=== PATIENT | female | born 1990 | race Caucasian/White ===

== ENCOUNTER 2021-10-13 11:04 | Emergency (ER) | payer OTHER, SELFPAY ==
--- NOTE | ~2021-10-13 | XR_ITS ---
XR abdomen/kub 1V DATE: 10/13/2021 13:45 INDICATION: Constipation. Last bowel movement one week ago. TECHNIQUE: AP projection, 2 views COMPARISON: None FINDINGS: There is a prominent amount of fecal material throughout the colon consistent with clinical complaint of constipation. No bowel obstruction is noted. No visceromegaly or abnormal calcification is noted. Transitional lumbosacral vertebra with sacralization pseudoarthrosis on the right. The lung bases are clear. Heart size appears normal. IMPRESSION: Prominent amount of fecal material in the colon, consistent with clinical complaint of co nstipation; no bowel obstruction Reviewed, dictated and finalized at [facility]. Reviewed, dictated and finalized at [facility]. IMPRESSION: Prominent amount of fecal material in the colon, consistent with cl inical complaint of constipation; no bowel obstruction
[2021-10-13 11:18] VITALS: BP 123/71; PULSE 100; RESP 17; TEMP 36.6; O2SAT 100
[2021-10-13 12:22] LABS: Basophils Absolute Auto 0.1 K/mm3 (0.0-0.1); Eosinophils Absolute Auto 0.3 K/mm3 (0-0.3); Hematocrit 42.4 % (37.0-47.0); Hemoglobin 13.4 g/dL (12.0-15.0); Immature Granulocyte Absolute 0.01 K/mm3 (0.00-0.031); Immature Granulocyte Percent A 0.2 % (0-0.5); Lymphocytes Absolute Auto 1.53 K/mm3 (0.9-3.2); Lymphocytes Percent Auto 25.7 % (18.3-44.2); Mean Corpuscular HGB Conc 31.6 g/dl (32-36); Mean Corpuscular Hemoglobin 29.5 pg (26-34); Mean Corpuscular Volume 93.2 fl (80-100); Mean Platelet Volume 9.2 fl (7.4-10.4); Monocytes Absolute Auto 0.6 K/mm3 (0.1-0.6); Monocytes Percent Auto 9.9 % (2.6-8.5); Neutrophils Absolute Auto 3.5 K/mm3 (1.3-6.7); Neutrophils Percent Auto 58.2 % (45.5-73.1); Platelet Count Result 332 k/mm3 (150-375); Red Blood Count 4.55 M/mm3 (4.2-5.4); Red Cell Distribution Width 12.7 % (11.5-14.5)
[2021-10-13 12:42] LABS: Add Urine Microscopic? YES; Appearance Urine Cloudy (Clear); Bilirubin Urine Negative (Negative); Blood Urine Negative (Negative); Color Urine Yellow (Yellow); Glucose Urine UA Negative (Negative); Ketones Urine Negative (Negative); Leukocyte Esterase Ur Negative LEU/UL (Negative); Nitrate Urine Negative (Negative); Protein Urine Negative (Negative); Specific Grav Ur >= 1.030 (1.001-1.035); Urobilinogen Urine 0.2 mg/dL (<2.0)
[2021-10-13 12:46] LABS: Mucus Urine Rare /lpf; RBC Urine 0-2 /hpf (0-2); Squamous Epithelial Cell Urine Many /hpf (Few); WBC Urine 0-3 /hpf
--- NOTE | 2021-10-13 12:52 | PC.NURSE ---
Phlebotomy called due to green top rejection in lab and patient being IV ultra sound difficulty.
[2021-10-13 13:24] LABS: Alanine Aminotransferase 17 U/L (6-35); Albumin Level 4.2 g/dL (3.5-5.1); Alkaline Phosphatase 41 U/L (38-126); Anion Gap 5 mmol/L (8-16); Aspartate Amino Transferase 27 U/L (14-36); Bilirubin,Total 0.6 mg/dL (0.2-1.3); Blood Urea Nitrogen 16 mg/dL (7-17); Calcium 8.9 mg/dL (8.4-10.2); Carbon Dioxide 24 mmol/L (22-30); Chloride 107 mmol/L (98-107); Estimated CRCL calculation 92 ml/min; Estimated Glomerular Filt Rate > 60; Glucose 92 mg/dL (65-110); Lipase 85 U/L (23-300); Potassium 4.7 mmol/L (3.4-5.0); Sodium 136 mmol/L (137-145)
--- NOTE | 2021-10-13 14:06 | ED.ABDPAIN ---
HPI - Abdominal Pain General Chief Complaint: Abdominal Pain Stated Complaint: abd pain Time Seen by Provider: 10/13/21 11:58 History of Present Illness HPI narrative: Patient is a 31-year-old female who presents ER with periumbilical pain. Ongoing for 1 week. Associate with constipation and bloating. Feels better when she passes gas. No vomiting. No history of abdominal surgery or bowel obstruction. Denies fevers or chills or sweats. Has taken Ex-Lax without improvement. Related Data Home Medications Medication Instructions Recorded Confirmed alprazolam 04/05/19 dextroamphetamine-amphetamine 04/05/19 Allergies Allergy/AdvReac Type Severity Reaction Status Date / Time No Known Allergies Allergy Verified 10/13/21 12:19 Review of Systems Review of Systems: All systems reviewed & are unremarkable except as noted in HPI and below Constitutional: Constitutional: Denies chills, Denies fever(s) and Denies weakness ENT: Denies nasal congestion and Denies sore throat Cardiovascular: Cardiovascular: Denies chest pain, Denies rapid heart rate and Denies radiating jaw, neck or arm pain Respiratory: Respiratory: Denies cough and Denies dyspnea Gastrointestinal: Gastrointestinal: Reports abdominal pain, Reports bloating, Reports constipation, Denies diarrhea, Denies nausea and Denies vomiting PMFSH Past Medical History Medical History (Updated 10/13/21 @ 14:15 by Graham Marshall MD) ADHD Anxiety HTN (hypertension) Surgical History Surgical History (Updated 10/13/21 @ 14:08 by Graham Marshall MD) No pertinent past surgical history Social History Social History (Updated 04/05/19 @ 17:08 by Carla Carr, NIGHT SHIFT MANAGER) Smoking packs per day: 1 Smoking cigarettes per day: 20.0 Years smoked: 20 Smoking pack-years: 20.00 Smoking status: Current every day smoker Tobacco type: cigarettes Alcohol intake: never Substance use: former Substance use type: opiates Gender identity (if verbalized by the patient): Female Exam Narrative: GENERAL: Well-appearing, well-nourished, and in no acute distress. HEAD: Normocephalic, atraumatic. CHEST: Clear to auscultation. No respiratory distress. HEART: Regular rate and rhythm. Normal peripheral pulses. ABDOMEN: Soft, nontender, nondistended. EXTREMITIES: Normal range of motion. No edema. SKIN: Warm, dry, no rash. NEURO: Alert and oriented x3. PSYCH: Normal mood and affect. Course Course Emergency Course: Patient educated on constipation and need for good hydration. Discharge home with magnesium citrate and as needed MiraLAX. Vital Signs Vital signs: Vital Signs Temperature 97.8 F 10/13/21 11:18 Pulse Rate 100 10/13/21 11:18 Respiratory Rate 17 10/13/21 11:18 Blood Pressure 123/71 10/13/21 11:18 Pulse Oximetry 100 10/13/21 11:18 Temperature 97.8 F 10/13/21 11:18 Pulse Rate 100 10/13/21 11:18 Respiratory Rate 17 10/13/21 11:18 Blood Pressure 123/71 10/13/21 11:18 Pulse Oximetry 100 10/13/21 11:18 MDM - Abdominal Pain Lab Data Result diagrams: 10/13/21 12:13 10/13/21 13:03 Labs: Lab Results 10/13/21 10/13/21 10/13/21 Range/Units 12:13 12:13 13:03 WBC 6.0 (4.5-10.0) K/mm3 RBC 4.55 (4.2-5.4) M/mm3 Hgb 13.4 (12.0-15.0) g/dL Hct 42.4 (37.0-47.0) % MCV 93.2 (80-100) fl MCH 29.5 (26-34) pg MCHC 31.6 L (32-36) g/dl RDW 12.7 (11.5-14.5) % Plt Count 332 (150-375) k/mm3 MPV 9.2 (7.4-10.4) fl Immature Gran % (Auto) 0.2 (0-0.5) % Neut % (Auto) 58.2 (45.5-73.1) % Lymph % (Auto) 25.7 (18.3-44.2) % [place] % (Auto) 9.9 H (2.6-8.5) % Eos % (Auto) 5.0 H (0-4.4) % Baso % (Auto) 1.0 (0.2-1.2) % Lymph # (Auto) 1.53 (0.9-3.2) K/mm3 [place] # (Auto) 0.6 (0.1-0.6) K/mm3 Eos # (Auto) 0.3 (0-0.3) K/mm3 Baso # (Auto) 0.1 (0.0-0.1) K/mm3 Abs Immat Gran (auto) 0.01 (0.00-0.031) K
[2021-10-13] MEDS: MAGNESIUM CITRATE 300 ML BTL PO (14:29)
== END 2021-10-13 14:30 | disposition home or self-care (01) ==
PROVIDERS: Emergency Medicine; Emergency Provider Emergency Medicine
DX: K59.00 Constipation, unspecified (principal); I10 Essential (primary) hypertension; F90.9 Attention-deficit hyperactivity disorder, unspecified type; F41.9 Anxiety disorder, unspecified
CPT/HCPCS: 36415; 74018; 80053; 81001; 81025; 83690; 85025; 99283; A9270

== ENCOUNTER 2022-02-14 17:01 | Inpatient (IN) | payer OTHER, SELFPAY ==
--- NOTE | ~2022-02-14 | XR_ITS ---
EXAMINATION: XR elbow RT min 3V DATE: 02/15/2022 06:03 INDICATION: Right orbital cellulitis TECHNIQUE: Anteroposterior, oblique and lateral views of the right elbow were obtained. COMPARISON: None. FINDINGS: Alignment is normal. No fracture or joint effusion. Joint spaces are normal. No cortical erosions or periosteal reaction to suggest osteomyelitis. Soft tissue swelling most prominent posterior to the ol ecranon with more diffuse subcutaneous edema extending posterior to the proximal forearm consistent w ith provided history of cellulitis. IMPRESSION: 1. No right elbow joint effusion or osseous abnormality. Reviewed, dictated and finalized at [facility].
[2022-02-14 17:14] VITALS: BP 137/67; PULSE 114; RESP 20; TEMP 36.7; O2SAT 100
[2022-02-14 18:07] LABS: Basophils Absolute Auto 0.1 K/mm3 (0.0-0.1); Basophils Percent Auto 0.6 % (0.2-1.2); Eosinophils Absolute Auto 0.4 K/mm3 (0-0.3); Eosinophils Percent Auto 3.4 % (0-4.4); Hemoglobin 14.9 g/dL (12.0-15.0); Immature Granulocyte Absolute 0.04 K/mm3 (0.00-0.031); Immature Granulocyte Percent A 0.3 % (0-0.5); Lymphocytes Absolute Auto 1.56 K/mm3 (0.9-3.2); Lymphocytes Percent Auto 13.4 % (18.3-44.2); Mean Corpuscular HGB Conc 33.1 g/dl (32-36); Mean Corpuscular Hemoglobin 29.4 pg (26-34); Mean Corpuscular Volume 88.8 fl (80-100); Mean Platelet Volume 9.6 fl (7.4-10.4); Monocytes Absolute Auto 1.2 K/mm3 (0.1-0.6); Neutrophils Absolute Auto 8.4 K/mm3 (1.3-6.7); Neutrophils Percent Auto 72.3 % (45.5-73.1); Platelet Count Result 330 k/mm3 (150-375); Red Blood Count 5.07 M/mm3 (4.2-5.4); Red Cell Distribution Width 12.9 % (11.5-14.5); White Blood Count 11.6 K/mm3 (4.5-10.0)
[2022-02-14 18:16] LABS: Lactic Acid Reflex 1.5 mmol/L (0.7-2.0)
[2022-02-14 18:18] VITALS: BP 128/84; PULSE 107; RESP 14; O2SAT 100
[2022-02-14 18:21] LABS: Alanine Aminotransferase 17 U/L (6-35); Albumin Level 4.9 g/dL (3.5-5.1); Alkaline Phosphatase 53 U/L (38-126); Anion Gap 14 mmol/L (8-16); Aspartate Amino Transferase 24 U/L (14-36); Bilirubin,Total 0.6 mg/dL (0.2-1.3); Blood Urea Nitrogen 11 mg/dL (7-17); Carbon Dioxide 20 mmol/L (22-30); Chloride 103 mmol/L (98-107); Estimated CRCL calculation 91 ml/min; Estimated Glomerular Filt Rate > 60; Glucose 94 mg/dL (65-110); Sodium 137 mmol/L (137-145)
--- NOTE | 2022-02-14 18:24 | ED.SKABFB ---
HPI - Skin/Abscess/Foreign Bdy General Chief complaint: Skin/Abscess/Foreign Body Stated complaint: R ARM INFECTION Time Seen by Provider: 02/14/22 18:17 Source: patient Mode of arrival: ambulatory Limitations: no limitations History of Present Illness HPI narrative: 31 years old white female presents with skin infection/abscess at the right forearm but posteriorly started 1-1/2-week ago, went to [facility], finished a course of Septra, 7 days without improvement, have seen in urgent care 3 days ago, status post incision and drainage, is not improving, currently severe diffuse pain and warmth and erythema was yellow discharge coming out that area Related Data Home Medications Medication Instructions Recorded Confirmed alprazolam 2 mg tablet 04/05/19 dextroamphetamine-amphetamine 10 04/05/19 mg tablet Allergies Allergy/AdvReac Type Severity Reaction Status Date / Time No Known Allergies Allergy Verified 10/13/21 12:19 Review of Systems Review of Systems: All systems reviewed & are unremarkable except as noted in HPI and below PMFSH Past Medical History Medical History ADHD Anxiety HTN (hypertension) Surgical History Surgical History No pertinent past surgical history Social History Social History Smoking packs per day: 1 Smoking cigarettes per day: 20.0 Years smoked: 20 Smoking pack-years: 20.00 Smoking status: Current every day smoker Tobacco type: cigarettes Alcohol intake: never Substance use: former Substance use type: opiates Gender identity (if verbalized by the patient): Female Exam Narrative: General appearance: Well-developed, well-nourished, in pain Skin: Normal color, right forearm showed diffuse erythema, warmth, swelling around the right elbow posteriorly with purulent discharge, no fluctuation Head: Normocephalic, nontraumatic Eyes: Clear conjunctiva Vascular: Normal peripheral pulses, normal capillary refill. Musculoskeletal: Normal range of motion, nontender back Neurologic: Alert and oriented ?3, INSURANCE BILLING SPECIALIST is normal as tested, no gross motor deficit Course Consultations Consultation #1: Dr. Britton Date: 02/14/22 Time: 18:40 Vital Signs Vital signs: Vital Signs Temperature 36.7 C 02/14/22 17:14 Pulse Rate 114 H 02/14/22 17:14 Respiratory Rate 20 02/14/22 17:14 Blood Pressure 137/67 02/14/22 17:14 Pulse Oximetry 100 02/14/22 17:14 Oxygen Delivery Room Air 02/14/22 17:14 Temperature 36.7 C 02/14/22 17:14 Pulse Rate 107 H 02/14/22 18:18 Respiratory Rate 14 02/14/22 18:18 Blood Pressure 128/84 02/14/22 18:18 Pulse Oximetry 100 02/14/22 18:18 Oxygen Delivery Room Air 02/14/22 17:14 MDM - Skin/Abscess/Foreign Bdy Differential Diagnosis Differential diagnosis: Likely abscess of skin or subcutaneous tissue, cellulitis and insect bites Lab Data Result diagrams: 02/14/22 17:49 02/14/22 17:49 Labs: Lab Results 02/14/22 02/14/22 02/14/22 Range/Units 17:49 17:49 17:49 WBC 11.6 H (4.5-10.0) K/mm3 RBC 5.07 (4.2-5.4) M/mm3 Hgb 14.9 (12.0-15.0) g/dL Hct 45.0 (37.0-47.0) % MCV 88.8 (80-100) fl MCH 29.4 (26-34) pg MCHC 33.1 (32-36) g/dl RDW 12.9 (11.5-14.5) % Plt Count 330 (150-375) k/mm3 MPV 9.6 (7.4-10.4) fl Immature Gran % (Auto) 0.3 (0-0.5) % Neut % (Auto) 72.3 (45.5-73.1) % Lymph % (Auto) 13.4 L (18.3-44.2) % [place] % (Auto) 10.0 H (2.6-8.5) % Eos % (Auto) 3.4 (0-4.
[2022-02-14 18:58] VITALS: BP 128/84; PULSE 107; RESP 15; O2SAT 100
[2022-02-14 18:59] LABS: CRP 5.1 mg/dL (<1.0)
--- NOTE | 2022-02-14 19:19 | PM.IMHP ---
H&P: HPI History of Present Illness Date/Time: 02/14/22 19:19 Chief Complaint: Skin infection right elbow Narrative: This is a 31-year-old female patient who came to the emergency room to be assessed for her right elbow abscess. This occurred approximately 1-1 and half weeks ago. The patient stated that they had been cleaning and they noticed multiple spiders. She is not sure she got bit by a spider. The patient finished a course of Septra that was 7 days without improvement. The patient was seen in urgent care 3 days ago. They did I and D of the right elbow. The patient stated that her pain has increased and that the redness has increased as well. The patient denies any IV drug use. Her white count was noted to be 11.6. Surgery has been called and consulted per ED provider. The patient was started on vancomycin. patient is being admitted to inpatient status on the date of service of 02/14/2022. Review of Systems Review of Systems: See HPI All systems reviewed & are unremarkable except as noted in HPI and below Constitutional: Constitutional: Reports as per HPI and Reports no additional constitutional complaints Eyes: Eyes: Reports as per HPI and Reports no additional eye complaints ENT: Reports system reviewed and no additional complaints, except as documented and Reports Normal hearing present Cardiovascular: Cardiovascular: Reports no additional cardiovascular complaints Respiratory: Respiratory: Reports no additional respiratory complaints and Reports no additional respiratory complaints Gastrointestinal: Gastrointestinal: Reports as per HPI and Reports no additional gastrointestinal complaints Musculoskeletal: Musculoskeletal: Reports no additional musculoskeletal complaints Integumentary/Breasts: Skin/Breast: Reports system reviewed and no additional complaints, except as docu and Reports as per HPI Neurologic: Reports system reviewed and no additional complaints, except as documented, Reports as per HPI and Reports Normal hearing present Psychiatric: Psychiatric: Reports no additional psychiatric complaints and Reports as per HPI Endocrine: Endocrine: Reports no additional endocrine complaints Hematologic/Lymphatic: Hematologic/Lymphatic: Reports no additional hematologic/lymphatic complaints Allergic/Immunologic: Allergic/Immunologic: Reports no additional allergic/immunologic complaints [facility] Past Medical History Medical History (Updated 02/14/22 @ 23:23 by Connie Neal NP) ADHD Anxiety HTN (hypertension) Tobacco abuse Surgical History Surgical History No pertinent past surgical history Family History Family History Father Injury Mother Cancer Grandparent Injury Heart disease Cancer Other Ovarian cancer Social History Social History (Updated 02/14/22 @ 23:15 by Connie Neal NP) Social History: The patient is single. She did have 1 child but gave the child up for adoption. She continues to smoke a half a pack a cigarettes a day. She works at the [employer]. The patient denies any alcohol marijuana or illicit drugs. She does not have a durable power banking attorney for healthcare. Code status full code Smoking packs per day: 0.5 Smoking cigarettes per day: 10.0 Years smoked: 20 Smoking pack-years: 10.00 Smoking status: Current every day smoker Tobacco type: cigarettes Alcohol intake: never Substance use: former Substance use type: opiates Gender identity (if verbalized by the patient): Female Spiritual care concerns: No Meds Home Medications and Allergies Home Medications Medication Instructions Recorded Confirmed Type alprazolam 2 mg tablet 2 mg PO QHS 04/05/19 02/14/22 History dextroamphetamine-amphetamine 20 20 mg PO BID 02/14/22 02/14/22 History mg tablet ibuprofen 600 mg tablet 600 mg PO Q6H PRN Mild P
[2022-02-14 19:56] VITALS: PULSE 103; RESP 18
[2022-02-14 20:10] VITALS: BP 129/67; PULSE 104; RESP 18; TEMP 36.7; O2SAT 100
--- NOTE | 2022-02-14 20:15 | ADMGEN ---
This patient, Ml Jeffers, was admitted to 3 [facility] Surg Room 313-01 @2010. Patient/family oriented to hospital policies and general routines including ID bracelet, bed and alarms, visiting hours, pain management, procedures, bathroom and other care routines, personal items, smoking policy, room service/diet, and visiting hours. Information on how to activate the Rapid Response Team has been discussed. Patient/Family are encouraged to report perceived risks to care and to ask questions if they do not understand what they are told or what they should do.
[2022-02-14] MEDS: HYDROcodone/acetaminophen (*CRX) 5-325 MG TABLET 1 TAB PO (20:20)
[2022-02-14 20:21] VITALS: BMI 26.0
[2022-02-14 20:25] VITALS: BMI 25.9
[2022-02-15] MEDS: PIPERACILLIN/TAZOBACTAM SOD 4.5 GM in SODIUM CHLORIDE 0.9% IV 100 ML 200 ML IVPB ×2 (00:08→05:35)
[2022-02-15] MEDS: HYDROcodone/acetaminophen (*CRX) 5-325 MG TABLET 1 TAB PO ×4 (00:21→15:24)
[2022-02-15 05:59] VITALS: BP 103/63; PULSE 71; RESP 18; TEMP 35.9; O2SAT 100
--- NOTE | 2022-02-15 07:39 | PC.NURSE ---
Patient IV infiltrated and unable to obtain IV access this time.2 IV antibiotics due @ 0600 unable to give at this time.
--- NOTE | 2022-02-15 08:21 | PM.CNGS ---
Assessment and Plan Assessment and plan (1) Abscess of skin or subcutaneous tissue: Code(s): L02.91 - Cutaneous abscess, unspecified Status: Acute Assessment and Plan: much improved, drained at bedside, local wound care, abx (2) Tobacco abuse: Code(s): Z72.0 - Tobacco use Status: Acute Assessment and Plan: discussed cessation History of Present Illness Consult details Consult date: 02/15/22 Reason for consult: wound care Requesting physician: Levar Irwin MD Narrative: Pt is a 31 y/o F presenting c worsening R elbow abscess/infection over last 10 days or so. Pt reports she was cleaning and noticed alot of spiders in the area although she is unsure if she was bitten. Pt reports progressive swelling, pain in R elbow area. Pt started on po abx initially s improvement. Pt then had I and D at urgent care approximately 4 days ago. Pt reports cont swelling, pain, redness. Pt also describes f/c, poor appetitie. Review of Systems Constitutional: Constitutional: Reports as per HPI, Denies anorexia, Reports chills, Reports fatigue, Reports fever(s), Reports lethargy, Reports malaise, Reports poor appetite, Reports weakness, Denies weight gain and Denies weight loss Eyes: Eyes: Reports no additional eye complaints ENT: Reports system reviewed and no additional complaints, except as documented Cardiovascular: Cardiovascular: Reports no additional cardiovascular complaints Respiratory: Respiratory: Reports no additional respiratory complaints Gastrointestinal: Gastrointestinal: Reports no additional gastrointestinal complaints Genitourinary: Genitourinary: Reports no additional female genitourinary complaints Musculoskeletal: Musculoskeletal: Reports as per HPI, Reports arthralgias and Reports joint swelling Integumentary/Breasts: Skin/Breast: Reports as per HPI Neurologic: Reports system reviewed and no additional complaints, except as documented Psychiatric: Psychiatric: Reports no additional psychiatric complaints Endocrine: Endocrine: Reports no additional endocrine complaints Hematologic/Lymphatic: Hematologic/Lymphatic: Reports no additional hematologic/lymphatic complaints Allergic/Immunologic: Allergic/Immunologic: Reports no additional allergic/immunologic complaints [facility] Past Medical History Medical History ADHD Anxiety HTN (hypertension) Tobacco abuse Surgical History Surgical History No pertinent past surgical history Family History Family History Father Injury Mother Cancer Grandparent Injury Heart disease Cancer Other Ovarian cancer Social History Social History Social History: The patient is single. She did have 1 child but gave the child up for adoption. She continues to smoke a half a pack a cigarettes a day. She works at the [employer]. The patient denies any alcohol marijuana or illicit drugs. She does not have a durable power attorney general for healthcare. Code status full code Smoking packs per day: 0.5 Smoking cigarettes per day: 10.0 Years smoked: 20 Smoking pack-years: 10.00 Smoking status: Current every day smoker Tobacco type: cigarettes Alcohol intake: never Substance use: former Substance use type: opiates Gender identity (if verbalized by the patient): Female Spiritual care concerns: No Meds Home Medications and Allergies Home Medications Medication Instructions Recorded Confirmed Type alprazolam 2 mg tablet 2 mg PO QHS 04/05/19 02/14/22 History dextroamphetamine-amphetamine 20 20 mg PO BID 02/14/22 02/14/22 History mg tablet ibuprofen 600 mg tablet 600 mg PO Q6H PRN Mild Pain (Scale 02/14/22 02/14/22 History Score 1-4) sulfamethoxazole 800 1 tablet PO BID
[2022-02-15] MEDS: ENOXAPARIN 40 MG/0.4 ML SYRINGE SUB-Q (08:36)
[2022-02-15] MEDS: NICOTINE (*PBKC) 14 MG PATCH 1 PATCH TRANSDERM (08:36)
--- NOTE | 2022-02-15 09:23 | PC.NURSE ---
Was told in report IV infiltrated prior to administering 0600 antibiotics and staff attempted 3 times with no success. Attempted to look myself, unable to find a vein. Pt stated they used ultrasound to place the last IV, called Sheri @ 0730 to attempt a IV so patient can receive IV antibiotics
[2022-02-15 09:40] VITALS: O2SAT 94
--- NOTE | 2022-02-15 09:59 | PM.IMPN ---
Subjective Date/time seen: 02/15/22 09:59 Objective Data Vital Signs Vital Signs: Vital Signs - 24 hr 02/14/22 17:14 02/14/22 18:18 02/14/22 18:58 Temperature 98.1 F Pulse Rate 114 H 107 H 107 H Respiratory Rate 20 14 15 Blood Pressure 137/67 128/84 128/84 Pulse Oximetry 100 100 100 Oxygen Delivery Room Air 02/14/22 19:56 02/14/22 20:10 02/14/22 21:00 Temperature 98.1 F Pulse Rate 103 H 104 H Respiratory Rate 18 18 Blood Pressure 129/67 Pulse Oximetry 100 Oxygen Delivery Room Air 02/15/22 05:59 02/15/22 08:00 02/15/22 09:40 Temperature 96.7 F L Pulse Rate 71 Respiratory Rate 18 Blood Pressure 103/63 Pulse Oximetry 100 94 Oxygen Delivery Room Air Room Air Intake/Output Intake/Output: Intake & Output 02/12/22 02/13/22 02/14/22 02/15/22 23:59 23:59 23:59 23:59 Intake Total 250 780 Output Total 200 Balance 250 580 Meds/Results Medications: Active Medications Generic Name Dose Route Start Last Admin Trade Name Freq PRN Reason Stop Dose Admin Acetaminophen 650 mg 02/14/22 18:44 Acetaminophen 325 Mg Tablet PO Q4H PRN Mild Pain (1-3) or Fever Hydrocodone Bitart/Acetaminophen 1 tab 02/14/22 19:22 02/15/22 09:57 Hydrocodone/Acetaminophen (*Crx) 5-325 Mg Tablet PO 1 tab Q4H PRN Administration Pain Rated 4-6 Alprazolam 0.5 mg 02/14/22 23:15 Alprazolam (*Crx) 0.5 Mg Tablet PO TID PRN Anxiety Enoxaparin Sodium 40 mg 02/15/22 09:00 02/15/22 08:36 Enoxaparin 40 Mg/0.4 Ml Syringe SUB-Q 40 mg DAILY DENISE Administration Vancomycin HCl 1,250 mg in 250 mls @ 200 mls/hr 02/15/22 10:00 02/15/22 09:56 Vancomycin 1,250 Mg/D5w 250 Ml IVPB 200 mls/hr Q12H DENISE Administration Ceftriaxone Sodium/Dextrose 1 gm in 50 mls @ 100 mls/hr 02/15/22 10:00 Rocephin 1 Gm/D5w 50 Ml IVPB Q24H DENISE Ibuprofen 600 mg 02/14/22 23:13 Ibuprofen 600 Mg Tablet PO Q6H PRN Mild Pain (Scale Score 1-4) Nicotine 1 patch 02/15/22 09:00 02/15/22 08:36 Nicotine (*Pbkc) 14 Mg Patch TRANSDERM 1 patch QAM DENISE Administration Ondansetron HCl 4 mg 02/14/22 19:22 Ondansetron Inj 4 Mg/2 Ml Vial IV PUSH Q4H PRN Nausea And Vomiting Radiology Results: ITS Impressions Elbow X-Ray 02/15/22 08:27 IMPRESSION: 1. No right elbow joint effusion or osseous abnormality. Labs Labs: Laboratory Results - last 24 hr 02/14/22 02/14/22 02/14/22 17:46 17:49 17:49 WBC 11.6 H RBC 5.07 Hgb 14.9 Hct 45.0 MCV 88.8 MCH 29.4 MCHC 33.1 RDW 12.9 Plt Count 330 MPV 9.6 Immature Gran % (Auto) 0.3 Neut % (Auto) 72.3 Lymph % (Auto) 13.4 L [place] % (Auto) 10.0 H Eos % (Auto) 3.4 Baso % (Auto) 0.6 Lymph # (Auto) 1.56 [place] # (Auto) 1.2 H Eos # (Auto) 0.4 H Baso # (Auto) 0.1 Abs Immat Gran (auto) 0.04 H Absolute Neuts (auto) 8.4 H Absolute Nucleated RBC 0.0 Nucleated RBC % 0.0 Sodium 137 Potassium 4.0 Chloride 103 Carbon Dioxide 20 L Anion Gap 14 BUN 11 D Creatinine 0.70 Estim Creat Clear Calc 91 Estimated GFR > 60 Glucose 94 Lactic Acid Calcium 10.0 Total Bilirubin 0.6 AST 24 ALT 17 Alkaline Phosphatase 53 C-Reactive Protein 5.1 H Total Protein 9.0 H Albumin 4.9 02/14/22 17:49 WBC RBC Hgb Hct MCV MCH MCHC RDW Plt Count MPV Immature Gran % (Auto) Neut % (Auto) Lymph % (Auto) [place] % (Auto) Eos % (Auto) Baso % (Auto) Lymph # (Auto) [place] # (Auto) Eos # (Auto) Baso # (Auto) Abs Immat Gran (auto) Absolute Neuts (auto) Absolute Nucleated RBC Nucleated RBC % Sodium Potassium Chloride Carbon Dioxide Anion Gap BUN Creatinine Estim Creat Clear Calc Estimated GFR Glucose Lactic Acid 1.5 Calcium Total Bilirubin AST ALT Alkaline Phosphatase C-Reactive Protein Total Protein Albumin
[2022-02-15 10:07] LABS: Basophils Absolute Auto 0.1 K/mm3 (0.0-0.1); Basophils Percent Auto 0.5 % (0.2-1.2); Eosinophils Absolute Auto 0.4 K/mm3 (0-0.3); Eosinophils Percent Auto 4.3 % (0-4.4); Hematocrit 40.8 % (37.0-47.0); Hemoglobin 13.2 g/dL (12.0-15.0); Immature Granulocyte Absolute 0.03 K/mm3 (0.00-0.031); Immature Granulocyte Percent A 0.3 % (0-0.5); Lymphocytes Absolute Auto 1.72 K/mm3 (0.9-3.2); Lymphocytes Percent Auto 18.4 % (18.3-44.2); Mean Corpuscular HGB Conc 32.4 g/dl (32-36); Mean Corpuscular Hemoglobin 29.6 pg (26-34); Mean Corpuscular Volume 91.5 fl (80-100); Mean Platelet Volume 9.8 fl (7.4-10.4); Monocytes Percent Auto 11.1 % (2.6-8.5); Neutrophils Absolute Auto 6.1 K/mm3 (1.3-6.7); Neutrophils Percent Auto 65.4 % (45.5-73.1); Platelet Count Result 293 k/mm3 (150-375); Red Blood Count 4.46 M/mm3 (4.2-5.4); Red Cell Distribution Width 12.8 % (11.5-14.5); White Blood Count 9.4 K/mm3 (4.5-10.0)
[2022-02-15 10:22] LABS: Lactic Acid Reflex 1.4 mmol/L (0.7-2.0)
[2022-02-15 10:26] LABS: Alanine Aminotransferase 17 U/L (6-35); Albumin Level 3.8 g/dL (3.5-5.1); Alkaline Phosphatase 45 U/L (38-126); Anion Gap 10 mmol/L (8-16); Aspartate Amino Transferase 24 U/L (14-36); Bilirubin,Total 0.3 mg/dL (0.2-1.3); Blood Urea Nitrogen 12 mg/dL (7-17); CRP 4.5 mg/dL (<1.0); Calcium 8.8 mg/dL (8.4-10.2); Carbon Dioxide 24 mmol/L (22-30); Chloride 102 mmol/L (98-107); Estimated CRCL calculation 80 ml/min; Estimated Glomerular Filt Rate > 60; Glucose 71 mg/dL (65-110); Magnesium 1.8 mg/dL (1.6-2.3); Potassium 3.9 mmol/L (3.4-5.0); Sodium 136 mmol/L (137-145)
[2022-02-15] MEDS: IBUPROFEN 600 MG TABLET PO (11:54)
[2022-02-15] MEDS: ACETAMINOPHEN 325 MG TABLET 650 MG PO (11:54)
--- NOTE | 2022-02-15 12:49 | WPDCDIQUERY2 ---
CDI Query Clarification Request 02/14 General surgery documented: Assessment and plan (1) Abscess of skin or subcutaneous tissue: ?Code(s): L02.91 - Cutaneous abscess, unspecified ?Status:?Acute ?Assessment and Plan: much improved, drained at bedside, local wound care, abx For coding purposes, please specify additional information regarding patient's debridement on R elbow. Excisional or Non Excisional Depth: -Skin -Subcutaneious tissue -Soft tissue -Fascia -Muscle -Bone <Stefanie Price - Last Filed: 02/15/22 12:53> Provider Comments non excisional <Jordyn Britton MD - Last Filed: 02/18/22 07:27>
[2022-02-15 14:00] VITALS: BP 119/75; PULSE 90; RESP 18; TEMP 37; O2SAT 100
--- NOTE | 2022-02-15 17:31 | PM.DS ---
DS: Admitting Diagnosis Discharge Date 02/15/22 Admitting Diagnosis Right elbow cellulitis DS: Discharge Diagnosis Discharge Diagnosis (1) Abscess of skin or subcutaneous tissue: Code(s): L02.91 - Cutaneous abscess, unspecified Status: Acute (2) ADHD: Code(s): F90.9 - Attention-deficit hyperactivity disorder, unspecified type Status: Acute (3) Anxiety: Code(s): F41.9 - Anxiety disorder, unspecified Status: Acute (4) Tobacco abuse: Code(s): Z72.0 - Tobacco use Status: Acute DS: Summary Hospital Course Hospital Course: 31-year-old female patient who came to the emergency room to be assessed for her right elbow abscess.? This occurred? approximately 1-1 and half weeks ago.? The patient stated that they had been cleaning and they noticed multiple spiders.? She is not sure she got bit by a spider.? The patient finished a course of Septra that was 7 days without improvement.? The patient was seen in urgent care 3 days ago.? They did I and D of the right elbow.? The patient stated that her pain has increased and that the redness has increased as well.? The patient denies any IV drug use.? Her white count was noted to be 11.6.? Surgery has been called and consulted per ED provider.? The patient was started on vancomycin. After the patient was admitted, Rocephin was added. Symptoms improved significantly. General surgery further drained the abscess at bedside. Patient was requesting to go home. She was discharged in good condition with close outpatient follow-up by General surgery, PCP. She was discharged a ten-day course of doxycycline with local wound care instructions given. Time Spent with Patient Time attestation: Total time spent providing and/or coordinating discharge services: Exam Narrative: General: No acute distress, alert and oriented per baseline HEENT: Atraumatic, normocephalic, mucous membranes moist CV: Regular rate and rhythm, S1, S2 Lungs: Clear to auscultation bilaterally, no rales or crackles noted, no wheezes, good air entry Abdomen: Soft, nontender, nondistended Extremities: Normal to inspection Skin: Right elbow with open draining wound, purulent material noted with some serosanguineous drainage as well, surrounding erythema Psych: Euthymic, normal affect DS: Data Data Completed and Pending Labs on day of discharge: Labs from last 24 hours 02/15/22 02/15/22 02/15/22 09:28 09:28 09:28 WBC 9.4 RBC 4.46 Hgb 13.2 Hct 40.8 MCV 91.5 MCH 29.6 MCHC 32.4 RDW 12.8 Plt Count 293 MPV 9.8 Immature Gran % (Auto) 0.3 Neut % (Auto) 65.4 Lymph % (Auto) 18.4 [place] % (Auto) 11.1 H Eos % (Auto) 4.3 Baso % (Auto) 0.5 Lymph # (Auto) 1.72 [place] # (Auto) 1.0 H Eos # (Auto) 0.4 H Baso # (Auto) 0.1 Abs Immat Gran (auto) 0.03 Absolute Neuts (auto) 6.1 Absolute Nucleated RBC 0.0 Nucleated RBC % 0.0 Sodium 136 L Potassium 3.9 Chloride 102 Carbon Dioxide 24 Anion Gap 10 BUN 12 Creatinine 0.70 Estim Creat Clear Calc 80 Estimated GFR > 60 Glucose 71 Lactic Acid 1.4 Calcium 8.8 Magnesium 1.8 Total Bilirubin 0.3 AST 24 ALT 17 Alkaline Phosphatase 45 C-Reactive Protein 4.5 H Total Protein 7.0 Albumin 3.8 02/14/22 02/14/22 02/14/22 17:49 17:49 17:49 WBC 11.6 H RBC 5.07 Hgb 14.9 Hct 45.0 MCV 88.8 MCH 29.4 MCHC 33.1 RDW 12.9 Plt Count 330 MPV 9.6 Immature Gran % (Auto) 0.3 Neut % (Auto) 72.3 Lymph % (Auto) 13.4 L [place] % (Auto) 10.0 H Eos % (Auto) 3.4 Baso % (Auto) 0.6 Lymph # (Auto) 1.56 [place] # (Auto) 1.2 H Eos # (Auto) 0.4 H Baso # (Auto) 0.1 Abs Immat Gran (auto) 0.04 H Absolute Neuts (auto) 8.4 H Absolute Nucleated RBC 0.0 Nucleated RBC % 0.0 Sodium 137 Potassium 4.0 Chloride 103 Carbon Dioxide 20 L Anion Gap 14
== END 2022-02-15 15:50 | disposition home or self-care (01) | DRG 383 ==
LOC: ANHED 18:41 → ANH3MEDSUR 20:04
PROVIDERS: Emergency Medicine; Nurse Practitioner; Admitting Provider Family Medicine; Emergency Provider Emergency Medicine; Visit Provider Student in an Organized Health Care Education/Training Program
DX: L02.413 Cutaneous abscess of right upper limb (principal); F17.210 Nicotine dependence, cigarettes, uncomplicated; F90.9 Attention-deficit hyperactivity disorder, unspecified type; F41.9 Anxiety disorder, unspecified; Z79.899 Other long term (current) drug therapy
CPT/HCPCS: 36415; 73080; 80053; 83605; 83735; 85025; 86140; 87040; 87070; 87147; 87181; 87186; 87205; 99285; A9270; J0696; J1650; J2543; J3370

== ENCOUNTER 2022-03-21 17:09 | Outpatient (CLI) | payer OTHER, SELFPAY ==
[2022-03-28 20:53] LABS: Progesterone 9.1 ng/mL (***)
== END 2022-03-21 17:10 | disposition home or self-care (01) ==
PROVIDERS: Visit Provider Obstetrics & Gynecology
DX: Z32.00 Encounter for pregnancy test, result unknown (principal)
CPT/HCPCS: 36415; 84144; 84702

== ENCOUNTER 2022-03-21 18:03 | Emergency (ER) | payer OTHER, SELFPAY ==
--- NOTE | ~2022-03-21 | US_ITS ---
EXAMINATION: US OB <=14 wk fetus w TV DATE: 03/21/2022 20:27 INDICATION: Cramping. . TECHNIQUE: Real-time transabdominal and transvaginal pelvic ultrasound was performed. COMPARISON: None. FINDINGS: TRANSABDOMINAL ULTRASOUND: The uterus measures 9.7 x 7.7 x 6.3 cm. TRANSVAGINAL ULTRASOUND: There is an intrauterine gestational sac. A yolk sac is identified. There is no visible pole. The right ovary measures 4.5 x 2.0 x 4.9 cm. The left ovary measures 4.4 x 1. 6 x 4.2 cm. There is no free fluid in the pelvis. IMPRESSION: 1. Single intrauterine gestation with estimated date of delivery of 11/11/2022. Reviewed, dictated and finalized at location A.
[2022-03-21 18:29] VITALS: BP 130/76; PULSE 110; RESP 14; TEMP 37; O2SAT 98
--- NOTE | 2022-03-21 19:18 | ED.FEMALEGU ---
HPI - Female Genitourinary General Chief complaint: FENCE ERECTOR Stated complaint: 6 weeks , wants to make sure baby okay Time Seen by Provider: 03/21/22 18:39 History of Present Illness HPI Narrative: Patient is a 31-year-old female who is currently about 6 weeks by her last menstrual cycle here for evaluation of lower abdominal cramping over the past 3 days. Patient states that the pain is intermittent in nature over the past 3 days, but it did ease up without intervention today. She denies any vaginal bleeding. No urinary symptoms, fevers, nausea, vomiting, back pain. She has established with an OB at [facility], patient had an ultrasound yesterday at a walk-in clinic that showed no definitive IUP or heart tones detected. Related Data Home Medications Medication Instructions Recorded Confirmed alprazolam 2 mg tablet 2 mg PO QHS 04/05/19 02/14/22 dextroamphetamine-amphetamine 20 20 mg PO BID 02/14/22 02/14/22 mg tablet ibuprofen 600 mg tablet 600 mg PO Q6H PRN Mild Pain (Scale 02/14/22 02/14/22 Score 1-4) Allergies Allergy/AdvReac Type Severity Reaction Status Date / Time No Known Allergies Allergy Verified 02/14/22 18:58 Review of Systems Review of Systems: Gen: Denies fevers or chills Eyes: Denies eye pain or visual change ENT: Denies congestion Respiratory: Denies shortness of breath or cough CV: Denies chest pain or palpitations GI: Reports lower abdominal pain. Denies nausea, emesis or diarrhea : denies burning, urgency, frequency or hematuria Musculoskeletal: Denies back pain or muscle pain Neuro: Denies numbness, tingling, weakness or focal weakness Skin: Denies rash Except as documented, all other systems reviewed and negative [facility] Past Medical History Medical History ADHD Anxiety HTN (hypertension) Tobacco abuse Surgical History Surgical History No pertinent past surgical history Family History Family History Father Injury Mother Cancer Grandparent Injury Heart disease Cancer Other Ovarian cancer Social History Social History Social History: The patient is single. She did have 1 child but gave the child up for adoption. She continues to smoke a half a pack a cigarettes a day. She works at the [employer]. The patient denies any alcohol marijuana or illicit drugs. She does not have a durable power finance attorney for healthcare. Code status full code Smoking packs per day: 0.5 Smoking cigarettes per day: 10.0 Years smoked: 20 Smoking pack-years: 10.00 Smoking status: Current every day smoker Tobacco type: cigarettes Alcohol intake: never Substance use: former Substance use type: opiates Gender identity (if verbalized by the patient): Female Spiritual care concerns: No Exam Narrative: APPEARANCE: Anxious appearing. Well appearing, no pain in distress, well-nourished. Head: Normocephalic and atraumatic. EYES: PERRLA/EOMI, conjunctivae clear NOSE: No nasal drainage EARS: External ear normal in appearance THROAT: Oropharynx is clear. Mucous membranes are moist. NECK: Supple. No adenopathy, no masses. RESPIRATORY: Airway patent, respirations nonlabored. Clear to auscultation bilaterally, no rales, rhonchi, wheezing. CARDIOVASCULAR: Regular rate and rhythm without murmurs, rubs, or gallops. ABDOMINAL: Normoactive bowel sounds. Soft, nontender, nondistended. No rebound tenderness or guarding. MUSCULOSKELETAL: Extremities are warm and well-perfused. Moves all extremities well. No edema. NEURO: Normal speech. No focal neurologic deficits. SKIN: Skin is warm and dry. No rashes. PSYCHIATRIC: Normal affect/mood. Course Vital Signs Vital signs: Vital Signs Temperature 98.6 F 10
--- NOTE | 2022-03-21 20:08 | PC.NURSE ---
Attempted X2 to obtain blood. Patient to US and another RN will attempt. Provider made aware
[2022-03-21 20:59] LABS: Add Urine Microscopic? YES; Appearance Urine Cloudy (Clear); Bacteria Urine Trace /hpf; Bilirubin Urine Negative (Negative); Blood Urine Negative (Negative); Color Urine Yellow (Yellow); Glucose Urine UA Negative (Negative); Ketones Urine Negative (Negative); Leukocyte Esterase Ur 3+ LEU/UL (Negative); Mucus Urine Rare /lpf; Nitrate Urine Negative (Negative); Protein Urine Negative (Negative); Specific Grav Ur 1.017 (1.001-1.035); Squamous Epithelial Cell Urine Many /hpf (Few)
[2022-03-21 21:00] LABS: Basophils Absolute Auto 0.1 K/mm3 (0.0-0.1); Basophils Percent Auto 0.7 % (0.2-1.2); Eosinophils Absolute Auto 0.5 K/mm3 (0-0.3); Eosinophils Percent Auto 4.1 % (0-4.4); Hematocrit 35.9 % (37.0-47.0); Hemoglobin 11.9 g/dL (12.0-15.0); Immature Granulocyte Percent A 0.8 % (0-0.5); Lymphocytes Absolute Auto 2.43 K/mm3 (0.9-3.2); Mean Corpuscular HGB Conc 33.1 g/dl (32-36); Mean Corpuscular Hemoglobin 30.4 pg (26-34); Mean Corpuscular Volume 91.6 fl (80-100); Mean Platelet Volume 9.3 fl (7.4-10.4); Monocytes Percent Auto 8.1 % (2.6-8.5); Neutrophils Absolute Auto 8.1 K/mm3 (1.3-6.7); Neutrophils Percent Auto 66.3 % (45.5-73.1); Platelet Count Result 292 k/mm3 (150-375); Red Blood Count 3.92 M/mm3 (4.2-5.4); Red Cell Distribution Width 14.2 % (11.5-14.5); White Blood Count 12.2 K/mm3 (4.5-10.0)
[2022-03-21 22:26] VITALS: BP 117/77; PULSE 94; RESP 16; O2SAT 98
== END 2022-03-21 22:28 | disposition home or self-care (01) ==
PROVIDERS: Physician Assistant; Emergency Provider Emergency Medicine; PCP Obstetrics & Gynecology
DX: O23.41 Unspecified infection of urinary tract in pregnancy, first trimester (principal); O26.891 Other specified pregnancy related conditions, first trimester; R10.30 Lower abdominal pain, unspecified; O16.1 Unspecified maternal hypertension, first trimester; O99.341 Other mental disorders complicating pregnancy, first trimester; F90.9 Attention-deficit hyperactivity disorder, unspecified type; F41.9 Anxiety disorder, unspecified; O99.331 Smoking (tobacco) complicating pregnancy, first trimester; F17.210 Nicotine dependence, cigarettes, uncomplicated; Z3A.01 Less than 8 weeks gestation of pregnancy
CPT/HCPCS: 36415; 76801; 76817; 81001; 81025; 84144; 84702; 85025; 85461; 87086; 99284

== ENCOUNTER 2022-04-18 01:21 | Day surgery (SDC) | payer OTHER, SELFPAY ==
[2022-04-17 14:57] VITALS: BMI 31.4
--- NOTE | 2022-04-17 15:01 | PC.NURSE ---
Report to the Outpatient Waiting Room, entrance under the green pavilion located off [facility], at time 1030 on date 04/18/22. Planned Procedure Time: 1230. Time changes happen often and if your time is changed the preop area will call you the afternoon before. - You and your visitor will be asked to self-screen and do not enter if you have any COVID symptoms. - Only one visitor is requested with a max of two and NO children visitors are allowed at this time. - The patient visitor may be requested to leave or wait in car when not with patient due to distancing restrictions. - A mask is optional within the hospital. Patients may have clear liquids (water, carbonated beverages, clear teas, apple juice) until 3 hours prior to surgery with a maximum of 20 ounces. - No food from midnight until time of surgery Take the following medications with a SIP of water the morning of surgery: ANTIBIOTICS, ALPRAZOLAM IF NEEDED Medications to discontinue per physician: N/A Date to take last dose: N/A Please no make-up, nail central af[place], hairspray, perfume, deodorant, or body powder the day of surgery. No jewelry (including any body piercings) or valuables the day of surgery, leave them at home. Please take a shower or bath the night before, or the morning of, surgery with an antibacterial soap. Wear comfortable, loose fitting clothing. - Jewelry must be removed prior to entering the operating room. Rings and piercings that are not removed may be cut off. - The hospital will not accept responsibility for valuables. - Please leave all valuables, including medications, at home the day of surgery. If you are going home after surgery, a licensed personal driver must drive you home. - NO public transportation without another adult if you receive anesthesia. - We recommend that an adult stay with you for 24 hours following discharge. - We also recommend that you do not drive, make important decision, drink alcoholic beverages, or take any drugs that were not prescribed by your health care provider for at least 24 hours after your discharge time. Follow any additional instructions given to you from your surgeon. If you or anyone in your household have experienced Covid symptoms in the past week, please notify your surgeon or the nurse liaison at the phone number below for possible testing. Telephone instructions given to PT - LOWELL BURNETT and asked if any additional questions and then verbalized understanding. Patient advised to call surgeon office or pre surgery nurse liaison [phone] if any additional questions.
--- NOTE | 2022-04-18 07:46 | PM.IMHP ---
H&P: HPI History of Present Illness Date/Time: 04/18/22 07:46 Chief Complaint: First-trimester missed A/B Narrative: Is a 31-year-old 2 para 1 who is in her 1st trimester with a missed A/B. Ultrasound proves lack of growth over 2 weeks time consistent with demise. Risks and benefits reviewed [facility] Past Medical History Medical History ADHD Anxiety HTN (hypertension) Tobacco abuse Surgical History Surgical History No pertinent past surgical history Family History Family History Father Injury Mother Cancer Grandparent Injury Heart disease Cancer Other Ovarian cancer Social History Social History Social History: The patient is single. She did have 1 child but gave the child up for adoption. She continues to smoke a half a pack a cigarettes a day. She works at the [employer]. The patient denies any alcohol marijuana or illicit drugs. She does not have a durable power workers compensation attorney for healthcare. Code status full code Smoking packs per day: 1 Smoking cigarettes per day: 20.0 Years smoked: 18 Smoking pack-years: 18.00 Smoking status: Current every day smoker Tobacco type: cigarettes Alcohol intake: current Alcohol use details: WHEN NOT Substance use: never Substance use type: does not use Living arrangements: with family Gender identity (if verbalized by the patient): Female Spiritual care concerns: No Meds Home Medications and Allergies Home Medications Medication Instructions Recorded Confirmed Type alprazolam 2 mg tablet 2 mg PO QHS 04/05/19 04/17/22 History dextroamphetamine-amphetamine 20 20 mg PO BID 02/14/22 04/17/22 History mg tablet cephalexin 500 mg capsule 500 mg PO BID 04/17/22 04/17/22 History metronidazole 500 mg tablet 500 mg PO BID 04/17/22 04/17/22 History Allergies Allergy/AdvReac Type Severity Reaction Status Date / Time No Known Allergies Allergy Verified 04/17/22 14:56 Exam Const: General: cooperative, healthy appearing and comfortable Nutritional Appearance: average body habitus Orientation/consciousness: oriented to person, oriented to place and oriented to time Resp: Effort & Inspection: normal respiratory effort Cardio: Rate: regular rate Rhythm: regular rhythm Heart sounds: S1 normal heart sound present and S2 normal heart sound present GI: Inspection: normal to inspection Auscultation: normal bowel sounds : External Female Exam: normal external appearance Speculum Exam - Vagina: normal appearance of the vagina Speculum Exam - Cervix: normal appearance of the cervix Bimanual exam- vagina & uterus: enlarged Bimanual Exam- Adnexa, other: normal adnexae Assessment and Plan Assessment and plan (1) Missed : Code(s): O02.1 - Missed Status: Acute Plan Suction dilatation curettage
--- NOTE | 2022-04-18 07:49 | WPDHPUPDATE1 ---
History and Physical Update Update Date/Time: 04/18/22 07:49 History and Physical has been reviewed, including an updated exam of the patient. There are NO changes in the patient's condition. Risks, benefits, and alternatives have been discussed and questions answered. Patient agrees to proceed with procedure.
--- NOTE | 2022-04-18 10:31 | P.PNAN_ITS ---
Anes - Initial Pre Proc Eval Procedure: Operation Date: 04/18/22 12:30 Proposed Procedures p Suction Dilatation and Curettage - Joshua Meza MD Date/Time: 04/18/22 10:31 Surgeon: Joshua Meza MD Pre Op Diagnosis: missed AB Patient Data Age: 31 Gender: F Height: 1.57 m Weight: 78 kg Allergies Allergy/AdvReac Type Severity Reaction Status Date / Time No Known Allergies Allergy Verified 04/17/22 14:56 Home Medications Medication Instructions Recorded Confirmed Type alprazolam 2 mg tablet 2 mg PO QHS 04/05/19 04/17/22 History dextroamphetamine-amphetamine 20 20 mg PO BID 02/14/22 04/17/22 History mg tablet cephalexin 500 mg capsule 500 mg PO BID 04/17/22 04/17/22 History metronidazole 500 mg tablet 500 mg PO BID 04/17/22 04/17/22 History hydrocodone 5 mg-acetaminophen 325 1 tablet PO Q4H PRN pain #20 tabs 04/18/22 Rx mg tablet Patient hx anesthesia problems: none Family hx anesthesia problems: none Results Review: All pre-operative results and documents have been reviewed as part of the pre- operative evaluation. [facility] Past Medical History Medical History ADHD Anxiety HTN (hypertension) Tobacco abuse Surgical History Surgical History No pertinent past surgical history Family History Family History Father Injury Mother Cancer Grandparent Injury Heart disease Cancer Other Ovarian cancer Social History Social History Social History: The patient is single. She did have 1 child but gave the child up for adoption. She continues to smoke a half a pack a cigarettes a day. She works at the [employer]. The patient denies any alcohol marijuana or illicit drugs. She does not have a durable power tax associate attorney for healthcare. Code status full code Smoking packs per day: 1 Smoking cigarettes per day: 20.0 Years smoked: 18 Smoking pack-years: 18.00 Smoking status: Current every day smoker Tobacco type: cigarettes Alcohol intake: current Alcohol use details: WHEN NOT Substance use: never Substance use type: does not use Living arrangements: with family Gender identity (if verbalized by the patient): Female Spiritual care concerns: No Anes - Eval Final PreProcedure Day of Procedure 04/18/22 10:31 Patient weight: obese Heart: regular rate and rhythm Lungs: clear to auscultation Airway: Mallampati scale class II Neurological: alert and oriented Last oral intake: >/= 8 hours ASA classification: III Emergent: no Anesthetic plan: proceed Anesthesia type and monitoring: general GIVS and standard monitoring Results Review: All pre-operative results and documents have been reviewed as part of the pre- operative evaluation. Informed Consent: The patient's anesthetic plan and its attendant risks and benefits were discussed with the patient/family/POA. Questions were solicited and answers provided to the satisfaction of the patient/family/POA.
[2022-04-18 11:00] VITALS: BP 133/64; PULSE 104; RESP 16; TEMP 37.2; O2SAT 100
[2022-04-18] MEDS: LACTATED RINGERS 1,000 ML 30 ML IV CONT (11:00)
[2022-04-18] MEDS: fentaNYL CITRATE INJ (*CRX) 100 MCG/2 ML VIAL 50 MCG IV PUSH ×2 (11:44→11:51)
[2022-04-18] MEDS: LIDOCAINE HCL 1% PF 30 ML VIAL 10 ML INFILTRATE (12:42)
--- NOTE | 2022-04-18 13:02 | W.PM.PROC2 ---
Procedure Note - Detailed Date of Procedure 04/18/22 Pre-op Diagnosis missed AB Post-op Diagnosis Same Procedure Performed Suction dilatation and curettage Surgeon Joshua Meza MD Anesthesia MAC and Local Indications this 31-year-old 2 para 1 with a 1st trimester missed A/B Findings uterus sounded to 10cm. Tissue consistent with products of conception Description of Procedure patient was prepped draped in the normal sterile fashion placed in the dorsal lithotomy position. Under excellent IV sedation weighted speculum placed posterior fornix vagina. Anterior lip of the cervix grasped with single-tooth tenaculum. 2.5cc of 1% xylocaine anesthesia placed at 2, 4, 8, 10:00 a.m. of the cervix. Uterus sounded to 10cm. Serial dilatation with fragmented dilators performed followed by passage of the 10. Suction curette removing a moderate amount of placental tissue. When a good grating sound was heard the procedure was terminated. All sponge, needle, instrument counts were correct. Patient went to recovery in satisfactory condition Estimated Blood Loss 50 Packing No Pathology Yes Complications No immediate complications Condition Stable Disposition PACU
[2022-04-18 13:06] VITALS: BP 110/66; PULSE 102; RESP 16; O2SAT 95
--- NOTE | 2022-04-18 13:16 | SUR.PHASEII ---
No Rhogam needed patient is A+.
[2022-04-18] MEDS: fentaNYL CITRATE INJ (*CRX) 100 MCG/2 ML VIAL 25 MCG IV PUSH ×2 (13:33→13:36)
[2022-04-18 13:35] VITALS: BP 122/70; PULSE 87; O2SAT 100
[2022-04-18] MEDS: KETOROLAC 15 MG/ML VIAL (*BKC) IV PUSH (13:47)
[2022-04-18] MEDS: MIDAZOLAM HCL (*CRX) 2 MG/2 ML VIAL IV PUSH (14:02)
[2022-04-18 14:05] VITALS: BP 114/62; PULSE 91; O2SAT 99
[2022-04-18 14:20] VITALS: BP 104/65; PULSE 85; O2SAT 100
== END 2022-04-18 14:32 | disposition home or self-care (01) ==
PROVIDERS: Visit Provider Obstetrics & Gynecology
PROC: (CPT 59820; principal; 2022-04-18 12:30)
DX: O02.1 Missed abortion (principal); I10 Essential (primary) hypertension; F90.9 Attention-deficit hyperactivity disorder, unspecified type; F41.9 Anxiety disorder, unspecified; F17.210 Nicotine dependence, cigarettes, uncomplicated
CPT/HCPCS: 59820; 88305; J1885; J2250; J2704; J3010; J7120

== ENCOUNTER 2022-10-01 14:36 | Emergency (ER) | payer OTHER, SELFPAY ==
[2022-10-01 15:18] VITALS: BP 135/80; PULSE 109; RESP 17; TEMP 36.6; O2SAT 100
--- NOTE | 2022-10-01 16:02 | ED.FEMALEGU ---
HPI - Female Genitourinary General Chief complaint: Urogenital-Female <Perlita Leo PA-C - Last Filed: 10/01/22 19:07> Stated complaint: STD testing <Perlita Leo PA-C - Last Filed: 10/01/22 19:07> Time Seen by Provider: 10/01/22 15:29 <Perlita Leo PA-C - Last Filed: 10/01/22 19:07> History of Present Illness HPI Narrative: 32-year-old female LMP 08/24/2022 reports for evaluation due to concern for STDs, vaginal discharge, dysuria, urinary frequency and urgency x1 week. Patient reports she had unprotected sex with someone who she later found out had chlamydia, gonorrhea, trichomonas. She is requesting testing and treatment today. Patient also reporting a dull suprapubic pain. Denies vomiting, diarrhea, fever, body aches or chills, chest pain or shortness of breath, vaginal bleeding. Reports last menstrual period was unchanged from her baseline. <ePrlita Leo PA-C - Last Filed: 10/01/22 19:07> Related Data Home medications: Home Medications Medication Instructions Recorded Confirmed alprazolam 2 mg tablet 2 mg PO QHS 04/05/19 04/17/22 dextroamphetamine-amphetamine 20 20 mg PO BID 02/14/22 04/17/22 mg tablet cephalexin 500 mg capsule 500 mg PO BID 04/17/22 04/17/22 metronidazole 500 mg tablet 500 mg PO BID 04/17/22 04/17/22 <Perlita Leo PA-C - Last Filed: 10/01/22 19:07> Allergies/Adverse reactions: Allergies Allergy/AdvReac Type Severity Reaction Status Date / Time No Known Allergies Allergy Verified 04/17/22 14:56 <JAYSON Velazquez Last Filed: 10/01/22 19:07> Review of Systems Review of Systems: CONSTITUTIONAL: Denies fever, chills EYES: Denies visual changes, redness, or discharge. ENT: Denies rhinorrhea, congestion, sore throat, or otalgia. CARDIOVASCULAR: Denies chest pain, palpitations, or edema. RESPIRATORY: Denies cough or dyspnea. GASTROINTESTINAL: Denies abdominal pain, nausea, vomiting, or diarrhea. GENITOURINARY: See HPI SKIN: Denies rash or itching. MUSCULOSKELETAL: Denies back pain, joint pain, or myalgia. NEUROLOGIC: Denies headache, numbness, dizziness, or weakness. PSYCHIATRIC: Denies anxiety or depression. <Perlita Leo PA-C - Last Filed: 10/01/22 19:07> [facility] Past Medical History Medical History: Medical History ADHD Anxiety HTN (hypertension) Tobacco abuse <JAYSON Velazquez Last Filed: 10/01/22 19:07> Surgical History Surgical History: Surgical History No pertinent past surgical history <JAYSON Velazquez Last Filed: 10/01/22 19:07> Family History Family History: Family History Father Injury Mother Cancer Grandparent Injury Heart disease Cancer Other Ovarian cancer <JAYSON Velazquez Last Filed: 10/01/22 19:07> Social History Social History: Social History Social History: The patient is single. She did have 1 child but gave the child up for adoption. She continues to smoke a half a pack a cigarettes a day. She works at the [employer]. The patient denies any alcohol marijuana or illicit drugs. She does not have a durable power employee benefits attorney for healthcare. Code status full code Smoking packs per day: 1 Smoking cigarettes per day: 20.0 Years smoked: 18 Smoking pack-years: 18.00 Smoking status: Current every day smoker Tobacco type: cigarettes Alcohol intake: current Alcohol use details: WHEN NOT Substance use: never Substance use type: does not use Living arrangements: with family Occupation/Education: occupation Gender identity (if verbalized by the patient): Female Spiritual care concerns: No <JAYSON Velazquez Last Filed: 10/01/22 19:07> Ex
[2022-10-01] MEDS: ONDANSETRON HCL ODT 4 MG TABLET PO (16:26)
[2022-10-01] MEDS: metroNIDAZOLE 250 MG TABLET 500 MG PO (16:26)
[2022-10-01] MEDS: DOXYCYCLINE HYCLATE 100 MG TABLET PO (16:26)
[2022-10-01] MEDS: LIDOCAINE HCL 1% PF 30 ML VIAL XX (16:27)
[2022-10-01] MEDS: cefTRIAXone 1 GM VIAL 0.5 GM IM (16:27)
[2022-10-01 17:14] LABS: Appearance Urine Cloudy (Clear); Bacteria Urine 1+ /hpf; Bilirubin Urine Negative (Negative); Blood Urine Negative (Negative); Color Urine Yellow (Yellow); Glucose Urine UA Negative (Negative); Ketones Urine Trace mg/dL (Negative); Leukocyte Esterase Ur 1+ LEU/UL (Negative); Nitrate Urine Negative (Negative); Non Pathogenic Casts 0-2; Protein Urine Negative (Negative); RBC Urine 0-2 /hpf (0-2); Squamous Epithelial Cell Urine Many /hpf (Few); WBC Urine 21-50 /hpf; pH Urine 5.5 (5.0-9.0)
[2022-10-01 17:21] LABS: Add Urine Microscopic? YES
[2022-10-01 17:41] VITALS: BP 123/84; PULSE 89; RESP 14; O2SAT 99
== END 2022-10-01 17:48 | disposition home or self-care (01) ==
LOC: ANHED 17:43
PROVIDERS: Emergency Provider Physician Assistant
DX: N88.8 Other specified noninflammatory disorders of cervix uteri (principal); Z20.2 Contact with and (suspected) exposure to infections with a predominantly sexual mode of transmission; I10 Essential (primary) hypertension; F90.9 Attention-deficit hyperactivity disorder, unspecified type; F41.9 Anxiety disorder, unspecified; F17.210 Nicotine dependence, cigarettes, uncomplicated
CPT/HCPCS: 81001; 81025; 87070; 87086; 87088; 87147; 87491; 87591; 87808; 96372; 99284; A9270; J0696